=== PATIENT | male | born 1945 | race African-American/Black ===

== ENCOUNTER 2016-11-22 15:29 | Emergency (ER) | payer OTHER ==
[~2016-11-22] VITALS: Ht 180.3 cm; Wt 89.8 kg
[2016-11-22 15:40] VITALS: BP 100/65
[2016-11-22] MEDS ORDERED: TAMSULOSIN HCL0.4 MG ORAL (15:54)
[2016-11-22] MEDS ORDERED: Tamsulosin 0.4mg cap ORAL ONE (16:00)
[2016-11-22 16:07] VITALS: BP 100/65
--- NOTE | 2016-11-22 18:15 | Emergency Room Report ---
History of Present Illness General Chief Complaint: Male Urogenital Problems Source: Patient Present Illness HPI 70-year-old male presents ED for evaluation. Patient states he is unable to urinate x4 days. Notes suprapubic pain, 07/12, nonradiating. No other aggravating or relieving factors. Patient notes history of BPH. Patient states he is currently not taking any medications. Denies fevers or chills. Denies nausea or vomiting. Denies flank pain. Denies any other associated symptoms Allergies: Coded Allergies: No Known Allergies (Verified Allergy, Mild, 06/26/10) Patient History Past Medical History: DM, HTN Past Surgical History: none Pertinent Family History: none Social History: Denies: alcohol use, drug use, smoking Immunizations: UTD Reviewed Nursing Documentation: PMH: Agreed, PSxH: Agreed Nursing Documentation-PMH Past Medical History: No History, Except For Hx Hypertension: Yes Hx Diabetes: Yes Review of Systems All Other Systems: negative except mentioned in HPI Physical Exam Vital Signs Date Time Temp Pulse Resp B/P Pulse Ox O2 Delivery O2 Flow Rate FiO2 11/22/16 15:35 98.4 128 15 100/65 99 Room Air Sp02 EP Interpretation: reviewed, normal General Appearance: no apparent distress, alert, GCS 15, non-toxic Head: normocephalic Eyes: bilateral eye PERRL, bilateral eye normal inspection ENT: normal ENT inspection Neck: normal inspection Respiratory: chest non-tender, lungs clear, normal breath sounds, speaking full sentences Cardiovascular #1: regular rate, rhythm, no edema Gastrointestinal: normal bowel sounds, soft, non-distended, no guarding, no rebound, tenderness - suprapubic Rectal: deferred Genitourinary: no CVA tenderness Musculoskeletal: normal inspection Neurologic: alert, oriented x3, responsive, motor strength/tone normal, sensory intact, speech normal Psychiatric: normal inspection Skin: normal inspection Lymphatic: normal inspection Medical Decision Making Diagnostic Impression: Primary Impression: Urinary retention ER Course Hospital Course 70-year-old M presents to ED complaining of urinary retention. History of BPH Differential diagnoses include: obstruction, UTI, BPH Clinical course Patient placed on stretcher. After initial history and physical I recommended to patient that we placed a Merritt catheter to help relieve the obstruction. Patient refuses Merritt catheter; states he does not like them. I explained to patient that we are unable to relieve the obstruction effectively without the Merritt catheter. patient states she will only try medication. I explained to the patient I cannot promise medication to be effective. If he insists on not receiving a Merritt catheter he will have to sign out AMA Understands the risks of refusing treatment. Patient has competency to make his own decisions. Signed AMA form. Agreed to provide him with dose of Flomax here and with prescription however I explained to patient I cannot promise medication and treatment will work without mechanical relief of obstruction (merritt) Diagnosis - urinary retention left AMA with Rx Flomax. given referral to urology Last Vital Signs Date Time Temp Pulse Resp B/P Pulse Ox O2 Delivery O2 Flow Rate FiO2 11/22/16 16:07 98.4 87 15 100/65 99 Room Air Status: unchanged Disposition: AGAINST MEDICAL ADVICE Condition: Stable Scripts Tamsulosin Hcl (TAMSULOSIN HCL*) 0.4 Mg Cap.er.24h 0.4 MG ORAL BEDTIME, #10 CAP Prov: KENNEDY ESCOBEDO M.D. 11/22/16 Referrals: [facility],REFERRING (PCP) Fabricio Dent M.D. Patient Instructions: Benign Prostatic Hyperplasia KENNEDY ESCOBEDO M.D. Nov 22, 2016 18:15
== END 2016-11-22 16:07 | disposition left against medical advice (07) ==
LOC: EMR 16:05
DX: N40.1 Benign prostatic hyperplasia with lower urinary tract symptoms (principal); R33.8 Other retention of urine; E11.9 Type 2 diabetes mellitus without complications; I10 Essential (primary) hypertension
CPT/HCPCS: 99283